=== PATIENT | female | born 1980 | race Two or more races ===

== ENCOUNTER 2020-10-28 21:05 | Emergency (ER) | payer BC ==
[~2020-10-28] VITALS: Ht 165.1 cm; Wt 71.0 kg
[2020-10-28] MEDS ORDERED: METHOCARBAMOL 750 MG TABLET PO ONE (22:00)
[2020-10-28] MEDS ORDERED: PLEASE ENTER ALLERGIES MC SCH (22:00)
[2020-10-28] MEDS ORDERED: KETOROLAC 30 MG/1 ML IM ONE (22:00)
--- NOTE | 2020-10-28 22:09 | NUR ---
PT TO IMAGING
[2020-10-28] MEDS ORDERED: KETOROLAC 60 MG/2 ML ONE (22:14)
[2020-10-28] MEDS ORDERED: METHOCARBAMOL 750 MG TABLET ONE (22:14)
--- NOTE | 2020-10-28 23:18 | NUR ---
PT REPORTD RELIEF FROM MEDICATIONS.
[2020-10-28 23:26] VITALS: BP 118/76
== END 2020-10-28 23:27 | disposition home or self-care (01) ==
LOC: ED 22:57
DX: S39.012A Strain of muscle, fascia and tendon of lower back, initial encounter (principal); X58.XXXA Exposure to other specified factors, initial encounter; Y93.89 Activity, other specified; Y92.89 Other specified places as the place of occurrence of the external cause; Y99.8 Other external cause status
CPT/HCPCS: 72110; 96372; 99283; J1885